=== PATIENT | male | born 1955 | race Caucasian/White ===

== ENCOUNTER 2021-02-26 12:34 | Inpatient (IN) | payer MEDICARE, BC ==
--- NOTE | 2021-02-26 12:57 | ED ---
General Adult HPI - General Chief complaint: Fall Stated complaint: fall Source: patient, EMS Mode of arrival: EMS Limitations: physical limitation - History of Present Illness Initial comments: Dictation was produced using [employer] dictation software. please excuse any gramma tical, word or spelling errors. Chief Complaint: 65-year-old male presents to the emergency department with back pain after fall History of Present Illness: This 65-year-old male who has past medical history of chronic back pain. Patient states he has a pinched nerve somewhere in his back. Patient was climbing down from the ladder. He was at the bottom rung when he missed his footing and fell backwards. He landed on his back. EMS was called patient was brought to the emergency department. EMS reports that patient had very noticeable back tightness. He was given Toradol with improvement of symptoms. Patient states that his pain is barelybelow he is still however when he moves he feels it. The ROS documented in this emergency department record has been reviewed and confirmed by me. Those systems with pertinent positive or negative responses have been documented in the HPI. All other systems are other negative and/or noncontributory. PHYSICAL EXAM: General Impression: Alert and oriented x3, not in acute distress HEENT: Normocephalic atraumatic, extra-ocular movements intact, pupils equal and reactive to light bilaterally, mucous membranes moist. Cardiovascular: Heart regular rate and rhythm Chest: Able to complete full sentences, no retractions, no tachypnea Abdomen: abdomen soft, non-tender, non-distended, no organomegaly Musculoskeletal: Pulses present and equal in all extremities, no peripheral edema Lower back: Tenderness to palpation over the entire lumbar spine Motor: no focal deficits noted Neurological: CN II-XII grossly intact, no focal motor or sensory deficits noted Skin: Intact with no visualized rashes Psych: Normal affect and mood ED course: 65-year-old male presents to the emergency department for back pain after fall. They'll from the bottom rung of the ladder backwards landing on his lower back. Denies any head trauma. No loss of consciousness. No headache or neck pain. Computed tomography scan of the lumbar spine and pelvis was obtained. There does appear to be some compression deformity at L1 with minimal retropulsion of the ventral spinal canal. This appears to be age indeterminate. There is also a possible 6 mm thick ventral epidural process. Radiology recommends stat MRI. Given history of trauma is concern of epidural hematoma. I did call MRI suite to see if patient can receive a stat MRI here. They will call me back as soon as possible to see if they have an opening or if findings to transfer patient for stat MRI to different facility. Patient reevaluated at 4 PM. States that his symptoms are much improved. Denies any numbness and weakness to his bilateral lower extremities. States the back pain is improved. MRI is scheduled for 4:30 PM. Return evaluation was ordered. Mild leukocytosis of 13.7 likely secondary to stress. Coag panel is negative. Metabolic panel is within acceptable limits. Medications were reviewed patient does not take any antiplatelet coagulation medications. She does not have any history of bleeding disorders. MRI was ordered. I did receive a call from radiologist regarding findings. There is acute subacute moderate L1 and L5 compression fracture. There also is mild to moderate anterior epidural hematoma at T12 to L2 as well as L5-S1. There is resulting mild central canal stenosis. There is also degenerative changes notable L3 to L5. Patient reevaluated bedside at 7:20 PM on a been stable medical condition. He denies any lower extremity symptoms at this time. No saddle anesthesia or bowel bladder incontinence. Case was discussed with spine surgeon Dr. Goodman kwok who is agreeable with patient being admitted here facility with every 2-3 hour neuro checks. Patient will remain nothing by mouth. Maintenance IV fluids ordered. - Related Data Home Medications Medication Instructions Recorded Confirmed Atorvastatin [Lipitor] 20 mg PO HS 02/26/21 02/26/21 Famotidine [Pepcid] 20 mg PO BID 02/26/21 02/26/21 Lisinopril [Prinivil] 10 mg PO HS 02/26/21 02/26/21 Allergies Allergy/AdvReac Type Severity Reaction Status Date / Time Sulfa (Sulfonamide Allergy Rash/Hives Verified 02/26/21 13:49 Antibiotics) Review of Systems ROS Statement: Those systems with pertinent positive or pertinent negative responses have been documented in the HPI. ROS Other: All systems not noted in ROS Statement are negative. Past Medical History Past Medical History: Hyperlipidemia, Hypertension Additional Past Medical History / Comment(s): arthritis History of Any Multi-Drug Resistant Organisms: None Reported Past Surgical History: Hernia Repair Additional Past Surgical History / Comment(s): cleft palat, cataract Past Psychological History: No Psychological Hx Reported Smoking Status: Never smoker Past Alcohol Use History: Daily General Exam Limitations: physical limitation Course Vital Signs 02/26/21 12:46 Temperature 98.5 F Pulse Rate 82 Respiratory 18 Rate Blood Pressure 133/97 O2 Sat by Pulse 96 Oximetry Medical Decision Making - Lab Data Result diagrams: 02/26/21 15:33 02/26/21 15:33 Lab Results 02/26/21 02/26/21 02/26/21 Range/Units 15:33 15:33 15:33 WBC 13.7 H (3.8-10.6) k/uL RBC 4.72 (4.30-5.90) m/uL Hgb 14.3 (13.0-17.5) gm/dL Hct 43.5 (39.0-53.0) % MCV 92.2 (80.0-100.0) fL MCH 30.3 (25.0-35.0) pg MCHC 32.8 (31.0-37.0) g/dL RDW 12.8 (11.5-15.5) % Plt Count 180 (150-450) k/uL MPV 8.0 Neutrophils % 88 % Lymphocytes % 7 % Monocytes % 4 % Eosinophils % 1 % Basophils % 0 % Neutrophils # 12.1 H (1.3-7.7) k/uL Lymphocytes # 0.9 L (1.0-4.8) k/uL Monocytes # 0.6 (0-1.0) k/uL Eosinophils # 0.1 (0-0.7) k/uL Basophils # 0.0 (0-0.2) k/uL PT 10.2 (9.0-12.0) sec INR 0.9 (<1.2) APTT 21.5 L (22.0-30.0) sec Sodium 138 (137-145) mmol/L Potassium 4.1 (3.5-5.1) mmol/L Chloride 108 H (98-107) mmol/L Carbon Dioxide 20 L (22-30) mmol/L Anion Gap 10 mmol/L BUN 17 (9-20) mg/dL Creatinine 0.78 (0.66-1.25) mg/dL Est GFR (CKD-EPI)AfAm >90 (>60 ml/min/1.73 sqM) Est GFR (CKD-EPI)NonAf >90 (>60 ml/min/1.73 sqM) Glucose 101 H (74-99) mg/dL Calcium 9.3 (8.4-10.2) mg/dL Critical Care Time Critical Care Time: Yes Total Critical Care Time: 33 Disposition Clinical Impression: Epidural hematoma, Compression fracture Disposition: ADMITTED IP TO THIS [facility] Condition: Critical Referrals: Nonstaff,Physician [REFERRING] - 1-2 days
--- NOTE | 2021-02-26 13:49 | CT ---
EXAMINATION TYPE: CT lumbar spine wo con DATE OF EXAM: 02/26/2021 COMPARISON: None HISTORY: 65-year-old male fall off of ladder, back pain TECHNIQUE: Contiguous axial scanning of the lumbar spine without IV contrast. Coronal and sagittal re constructions performed. CT DLP: 828.8 mGycm Automated exposure control for dose reduction was used. FINDINGS: Partially visualized cyst in the right kidney measuring at least 3.3 cm. Sigmoid diverticulosis. Mild degenerative change bilateral SI joints. Baastrup's disease. Hypertrophic facet arthropathy mid to lower lumbar spine. Grade 1 anterolisthesis L4-L5. Trace grade 1 retrolisthesis L1-L2. Mild anterior compression fracture of L1 is age indeterminate and needs further clinical correlation as no surrounding soft tissue swelling is clearly identified. Minimal retropulsion into the ventral s richmond canal without spinal canal stenosis. Possible ventral epidural process. Questionable soft tissue thickening near, for example, refer to sa gittal image 25 is indicated by the arrows. Corresponding finding seems to duplicate on the axial janice ges, for example, axial images 34, 43, 44, and 49. This may cause uniform narrowing of the thecal sac . IMPRESSION: 1. AGE INDETERMINATE MILD COMPRESSION DEFORMITY OF L1. CORRELATE FOR ANY FOCAL PAIN AT THIS LEVEL. PR NIMAL RETROPULSION INTO THE VENTRAL SPINAL CANAL WITHOUT SPINAL CANAL STENOSIS. 2. POSSIBLE 6 MM THICK VENTRAL EPIDURAL PROCESS EXTENDING FROM L2 DOWN THROUGH THE L4 LEVELS. LUMBAR SPINE MRI RECOMMENDED NOW. 3. HYPERTROPHIC FACET ARTHROPATHY WITH DEGENERATIVE GRADE 1 ANTEROLISTHESIS L4-L5.
--- NOTE | 2021-02-26 13:52 | CT ---
EXAMINATION TYPE: CT pelvis wo con DATE OF EXAM: 02/26/2021 COMPARISON: None HISTORY: 65-year-old male fall off of ladder, back pain TECHNIQUE: Contiguous axial scanning of the pelvis without IV contrast. Coronal and sagittal reconstr uctions performed. CT DLP: 330.4 mGycm Automated exposure control for dose reduction was used. FINDINGS: Osteopenia. Multiple moderate degenerative change in both hips. Prostate gland enlargement measuring 4.6 cm wide. Sclerotic focus left pubic body likely bone island. No hip or pelvic fracture is identified. Small fatty umbilical hernia. Sigmoid diverticulosis. Small to moderate-sized fat-containing left ing uinal hernia. IMPRESSION: OSTEOPENIA. MILD TO MODERATE BILATERAL HIP OA. NO ACUTE OSSEOUS ABNORMALITY SEEN.
--- NOTE | 2021-02-26 15:25 | XR ---
Skull series HISTORY: Trauma and pain 2 views of the skull, no comparisons There are postoperative changes noted to the maxilla. There is increased opacity noted in the left ma xillary sinus. Orbits are intact. No evident depressed skull fracture. No dislocation evident. Degene rative disc changes are noted in the cervical spine at C4-5, facet arthropathy changes are present in the cervical spine. Prevertebral soft tissues are within normal limits. Bone mineralization is reduc ed. IMPRESSION: Postop changes, opacity in the left maxillary sinus is indeterminate, there may be inflam matory change.
[2021-02-26 15:42] LABS: Basophils % (A) 0 %; Eosinophils # (A) 0.1 k/uL (0-0.7); Eosinophils % (A) 1 %; HCT 43.5 % (39.0-53.0); HGB 14.3 gm/dL (13.0-17.5); Lymphocytes # (A) 0.9 k/uL (1.0-4.8); Lymphocytes % (A) 7 %; MCH 30.3 pg (25.0-35.0); MCHC 32.8 g/dL (31.0-37.0); MCV 92.2 fL (80.0-100.0); Monocytes # (A) 0.6 k/uL (0-1.0); Monocytes % (A) 4 %; Neutrophils # (A) 12.1 k/uL (1.3-7.7); Neutrophils % (A) 88 %; Platelet Count 180 k/uL (150-450); RBC 4.72 m/uL (4.30-5.90); RDW 12.8 % (11.5-15.5); WBC 13.7 k/uL (3.8-10.6)
[2021-02-26 15:49] LABS: Sodium 138 mmol/L (137-145)
[2021-02-26 15:56] LABS: INR 0.9 (<1.2); Partial Thromboplastin Time 21.5 sec (22.0-30.0); Prothrombin Time 10.2 sec (9.0-12.0)
[2021-02-26 16:02] LABS: African American GFR (CKD) >90 (>60 ml/min/1.73 sqM); Anion Gap 10 mmol/L; Blood Urea Nitrogen 17 mg/dL (9-20); Calcium 9.3 mg/dL (8.4-10.2); Carbon Dioxide 20 mmol/L (22-30); Chloride 108 mmol/L (98-107); Glucose 101 mg/dL (74-99); Non-African American GFR(CKD) >90 (>60 ml/min/1.73 sqM); Potassium 4.1 mmol/L (3.5-5.1)
[2021-02-26] MEDS: MORPHINE SULFATE 4 MG/ML SYRINGE IVP PRN ×2 (18:32→23:52)
--- NOTE | 2021-02-26 19:01 | MR ---
EXAMINATION TYPE: MR lumbar spine wo con DATE OF EXAM: 02/26/2021 COMPARISON: Same-day CT. HISTORY: Low back pain, suspect epidural hematoma. TECHNIQUE: Multiplanar, multisequence images of the lumbar spine were acquired without IV contrast. FINDINGS: There is moderate L1 compression fracture with approximate the 30% height loss and without significan t retropulsion. There is also mild L5 compression fracture without significant height loss or retropu lsion. There is associated moderate bone marrow edema fracture sites. There is associated [id number] anterior epidural hematoma extending from T12 through L2. There is also trace anterior epidural hematoma at L5 level. There is mass effect with resultant mild centr al canal stenosis related to the epidural hematoma. There is mild paraspinal soft tissue edema at the fracture sites. There is multilevel mild disc bulge most notable at L3-L4. There is ligamentum flavum thickening with mild central canal stenosis at L3-L4 and L4-L5. There is also [id number] foraminal stenosis on the right at L3-5. Otherwise mild foraminal stenosis in the lower lumbar spine. There is incidental 1.1 cm cystic structure within the S2 central canal, compatible with benign Tarlo v cyst. IMPRESSION: Acute/subacute moderate L1 and mild L5 compression fractures. Associated mild to moderate anterior epidural hematoma at T12-L2 as well as L5-S1 levels. Resultant m ild central canal stenosis. Also mild to moderate degenerative changes most notable at L3-L5 with mild central canal and mild to moderate foramina stenosis. Findings were reported to caring ED physician by me at time of dictation.
[2021-02-26] MEDS ORDERED: MORPHINE SULFATE 4 MG/ML SYRINGE IV PRN (19:19)
[2021-02-26] MEDS ORDERED: NALOXONE 0.4 MG/ML 1 ML VIAL IV PRN (19:19)
[2021-02-26] MEDS: SODIUM CHLORIDE 0.9% 1,000 ML IV SCH (20:54)
--- NOTE | 2021-02-26 20:56 | CT ---
EXAMINATION TYPE: CT thoracic spine wo con DATE OF EXAM: 02/26/2021 COMPARISON: Same-day CT and MR lumbar spine. HISTORY: back pain, fell off ladder Technique: Axial CT images of the lumbar spine was performed without contrast. CT DLP: 722.6 mGycm Automated exposure control for dose reduction was used. FINDINGS: There is redemonstration of moderate L1 compression fracture. Otherwise no acute fracture of the thor acic spine. Vertebral body heights are otherwise maintained. There is mild disc height narrowing at T 8-T12. The known anterior epidural hematoma at the thoracolumbar junction is better depicted on the p rior MRI study. There is an incidental 3.2 cm right renal cyst. IMPRESSION: REDEMONSTRATED ACUTE L1 COMPRESSION FRACTURE WITH KNOWN EPIDURAL HEMATOMA. OTHERWISE NO ACUTE FRACTURE OF THE THORACIC SPINE.
[2021-02-26] MEDS: FAMOTIDINE 20 MG TAB PO SCH (23:44)
[2021-02-26] MEDS: ATORVASTATIN 20 MG TAB PO SCH (23:44)
[2021-02-26] MEDS: lisinopriL 10 MG TAB PO SCH (23:45)
--- NOTE | 2021-02-27 00:24 | P.CONS ---
History of Present Illness - Reason for Consult Consult date: 02/26/21 medical eval Requesting physician: Toni Campbell - Chief Complaint back pain - History of Present Illness 65 year old male with hypertension patient comes in by EMS, after sustaining a fall off a ladder he was on his way down when he missed the last step and fell backward, no head injury or LOC , but exacerbated his chronic low back pain , from pinched nerve, his called EMS for evaluation . patient received a one time toradol dose en route. upon arrival he was complaining of severe low back pain , without any focal neuro deficits in his lower extremities , he denies any saddle parasthesia, urinary or bowel incontinence. he is not on any blood thinners, no antiplatelets, no bleeding tendencies. he is otherwise in good health overall. imaging showed, acute, subacute, moderate L1 and L5 compression fracture, there is also mild to moderate anterior epidural hematoma at T12-L2, as well as L5 to S1. there is resulting mild central canal stenosis . also degenerative changes noted over L3-L5 per Spine surgeon , recommended patient kept overnight for neuro checks Q2 hours and pain control Review of Systems Pertinent positives as noted in HPI. All other systems were reviewed and are negative Past Medical History Past Medical History: Hyperlipidemia, Hypertension Additional Past Medical History / Comment(s): arthritis History of Any Multi-Drug Resistant Organisms: None Reported Past Surgical History: Hernia Repair Additional Past Surgical History / Comment(s): cleft palat, cataract Past Psychological History: No Psychological Hx Reported Smoking Status: Never smoker Past Alcohol Use History: Daily - Past Family History family Family Medical History: No Reported History Medications and Allergies Home Medications Medication Instructions Recorded Confirmed Type Atorvastatin [Lipitor] 20 mg PO HS 02/26/21 02/26/21 History Famotidine [Pepcid] 20 mg PO BID 02/26/21 02/26/21 History Lisinopril [Prinivil] 10 mg PO HS 02/26/21 02/26/21 History Allergies Allergy/AdvReac Type Severity Reaction Status Date / Time Sulfa (Sulfonamide Allergy Rash/Hives Verified 02/26/21 13:49 Antibiotics) Physical Exam Vitals: Vital Signs Temp Pulse Resp BP Pulse Ox 02/26/21 12:46 98.5 F 82 18 133/97 96 Intake and Output 02/26/21 02/26/21 02/26/21 06:59 14:59 22:59 Other: Weight 78.018 kg Constitutional: No acute distress, conversant, pleasant Eyes: Anicteric sclerae, moist conjunctiva, Pupils equal round reactive to light ENMT: NC/AT Oropharynx clear, no erythema, or exudates Neck: Supple, FROM, no masses, or JVD No carotid bruits No thyromegaly Lungs: Clear to auscultation Clear to percussion Normal respiratory effort, no accessory muscle use Cardiovascular: Heart regular in rate and rhythm, No murmurs, gallops, or rubs No peripheral edema Abdominal: Soft Nontender, no guarding, rebound or rigidity Abdomen moving with respiration Normoactive bowel sounds No hepatomegaly, No splenomegaly No palpable mass No abdominal wall hernia noted Skin: Normal temperature, tone, texture, turgor No induration No subcutaneous nodules No rash, lesions No ulcers Extremities: No digital cyanosis No clubbing Pedal pulses intact and symmetrical Radial pulses intact and symmetrical No calf tenderness Psychiatric: Alert and oriented to person, place and time Appropriate affect fair judgement Neuro Muscles Strength 4 /5 in all 4 extremities Sensation to light touch grossly present throughout Cranial nerves II-XII grossly intact No focal sensory deficits Lymphatics: no palpable cervical or supraclavicular , or inguinal lymph nodes Results CBC & Chem 7: 02/26/21 15:33 02/26/21 15:33 Labs: Abnormal Lab Results - Last 24 Hours (Table) 02/26/21 02/26/21 02/26/21 Range/Units 15:33 15:33 15:33 WBC 13.7 H (3.8-10.6) k/uL Neutrophils # 12.1 H (1.3-7.7) k/uL Lymphocytes # 0.9 L (1.0-4.8) k/uL APTT 21.5 L (22.0-30.0) sec Chloride 108 H (98-107) mmol/L Carbon Dioxide 20 L (22-30) mmol/L Glucose 101 H (74-99) mg/dL Assessment and Plan Assessment: compression fracture of L1 and L5 , with mild to moderate anterior epidural hematoma at T12-L2, and L5-S1 spine surgery management pain control with morphine avoid blood thinners, and antiplatelet meds, avoid NSAIDs neuro checks [id number] NPO IVF hydration with normal saline chronic conditions hyperlipidemia Hypertension resume homemeds GERD Pepcid BID full code follow up vital signs Thank you for allowing us to participate in the care of this patient. We will follow peripherally. Do not hesitate to contact us with questions. Someone can be reached from the [facility] hospitalist group at all hours of the day at [phone].
[2021-02-27] MEDS: MORPHINE SULFATE 4 MG/ML SYRINGE IVP PRN (07:21)
[2021-02-27] MEDS: FAMOTIDINE 20 MG TAB PO SCH ×2 (08:08→20:10)
--- NOTE | 2021-02-27 08:58 | P.HPOR ---
History of Present Illness H&P Date: 02/27/21 Chief Complaint: back pain, fall off ladder 65 yo male presented to [facility] after a fall off of a ladder. Pt states he was coming down the ladder when he missed the last two steps and fell backwards directly onto his back and buttock region. He states no BHT or LOC with the fa ll. Immediate back pain from the fall prompted his ED visit. He has a hx of chronic back pain as well as a "pinched nerve" for which his PCP was treating him and he was in therapy with Negrita jones. He was doing well with this and was improving. Today he states pain in his back. He denies any radiating pain. Denies any pain down the legs. States no weakness. States he got up after the fall and was able to ambulate but with alot of pain. He denies any perineal numbness/tingling. No genital numbness/tingling. No bowel or bladder issues. no incontinence or retention he has voided once already today. Denies any CRUZ/F/C/SOB/CP/N/V. Pain is localized to center of the back and is mid to upper and lower at this time. Review of Systems 14 point ROS completed and as stated in HPI. All other reviewed negative. Constitutional: Reports as per HPI Past Medical History Past Medical History: Hyperlipidemia, Hypertension Additional Past Medical History / Comment(s): arthritis History of Any Multi-Drug Resistant Organisms: None Reported Past Surgical History: Hernia Repair Additional Past Surgical History / Comment(s): cleft palat, cataract Past Psychological History: No Psychological Hx Reported Smoking Status: Never smoker Past Alcohol Use History: Daily - Past Family History family Family Medical History: No Reported History Medications and Allergies Home Medications Medication Instructions Recorded Confirmed Type Atorvastatin [Lipitor] 20 mg PO HS 02/26/21 02/26/21 History Famotidine [Pepcid] 20 mg PO BID 02/26/21 02/26/21 History Lisinopril [Prinivil] 10 mg PO HS 02/26/21 02/26/21 History Allergies Allergy/AdvReac Type Severity Reaction Status Date / Time Sulfa (Sulfonamide Allergy Rash/Hives Verified 02/26/21 13:49 Antibiotics) Physical Examination Osteopathic Statement: *. No significant issues noted on an osteopathic structural exam other than those noted in the History and Physical/Consult. AOX3 NAD, well hydrated, well nourished, sitting up in bed converses well. PEERL, EOMI CN I-XII grossly intact TTP of the midline spine at T12 and L1 as well as L4-5 region. Some paraspinal ttp as well noted in these areas. No midline spinal tenderness (MST) of the C or T spine noted. NO clavicular pain, no pain with chin on chest or neck motion. Overall alignment maintained UE: 5/5 b/l motor in all major muscle groups, no focal deficits or weakness noted. LE: 5/5 strength in all. HF/KF/KE/DF/PF/EHL/FHL b/l SILT C5-T1 and L2-S1 intact perirectal sensation and tone NEG hoffmans, homans, babinski, clonus b/l UE and LE Mild tensioning signs on SLR and contralateral SLR on the L due to previous issues with sciatica and radiculopathy, no overt accentuation according to pt 2/4 distal pulses all FROM all major joints UE and LE b/l w/o pain Compartments soft and compressive Diadiokinesis intact b/l Rombergs intact b/l No pronator drift No wallenburgs sign Results CT of the T and L spine: This demonstrates ankylosis of the anterior thoracic spine. There is visualized L1 burst fracture. There are no other fractures noted in thoracic spine. In lumbar spine L1 AOA3 type burst fracture is noted with anterior wedging and 30% height loss with local kyphosis noted. There is questionable extension into the L pedicle. There is no evident posterior extension. There is epidural hematoma noted in this area. No SP splaying. No facet dislocation. No other fractures noted. MRI of the L spine: This demonstrates acute L1 AOA3 burst fracture as well as L5 VCF, mild. L1 is as described above with mild L pedicular edema, questionable fracture. There is L5 edema noted with <10% height loss. There is epidural hematoma noted T12-L2 as well as L5-S2. This causes mild to moderate stenosis at these levels. There is no acute stenotic lesions. There are no other fractures dislocations or other lesions noted at this time. - Labs Labs: Abnormal Lab Results - Last 24 Hours (Table) 02/26/21 02/26/21 02/26/21 Range/Units 15:33 15:33 15:33 WBC 13.7 H (3.8-10.6) k/uL Neutrophils # 12.1 H (1.3-7.7) k/uL Lymphocytes # 0.9 L (1.0-4.8) k/uL APTT 21.5 L (22.0-30.0) sec Chloride 108 H (98-107) mmol/L Carbon Dioxide 20 L (22-30) mmol/L Glucose 101 H (74-99) mg/dL H & H 02/26/21 Range/Units 15:33 Hgb 14.3 (13.0-17.5) gm/dL Hct 43.5 (39.0-53.0) % Coagulation 02/26/21 Range/Units 15:33 INR 0.9 (<1.2) Result Diagrams: 02/26/21 15:33 02/26/21 15:33 Assessment and Plan Assessment: 65 yo male s/p fall off ladder 1. L1 AOA3 burst fracture 2. L5 AOA2 compression fx 3. Epidural hematoma T12-L2 and L5-S2 4. Chronic back pain 5. Complex medical patient. Plan: -TLSO brace ordered and to be fitted -Pain control: PO meds along with IV. Light on IV only for breakthrough. Wendel for PO -GI ppx -No blood thinners, no NSAIDS -PT/OT once brace available to evaluate pain control and bracing potential for treatment -Continue to monitor neuro status Q4 hrs -Discussed treatment plan with patient. If he is able to mobilize with a brace reasonably and with good pain control and strength he may be able to go home and we can trial conservative treatment. If he is unable to tolerate mobilization with brace we may need to consider stabilization of L1 with rods and screws as well as possible cement. He understood this and was comfortable with this. We will attempt bracing here with PT/OT and see how pt does. We will continue neuro checks. No blood thinners at this time. [facility] DVT ppx only. Pain control as needed. Will follow closely
--- NOTE | 2021-02-27 09:16 | P.PN ---
Subjective Progress Note Date: 02/27/21 HPI: 65 year old male with hypertension patient comes in by EMS, after sustaining a fall off a ladder he was on his way down when he missed the last step and fell backward, no head injury or LOC , but exacerbated his chronic low back pain , from pinched nerve, his called EMS for evaluation . patient received a one time toradol dose en route. upon arrival he was complaining of severe low back pain , without any focal neuro deficits in his lower extremities , he denies any saddle parasthesia, urinary or bowel incontinence. he is not on any blood thinners, no antiplatelets, no bleeding tendencies. he is otherwise in good health overall. imaging showed, acute, subacute, moderate L1 and L5 compression fracture, there is also mild to moderate anterior epidural hematoma at T12-L2, as well as L5 to S1. there is resulting mild central canal stenosis . also degenerative changes noted over L3-L5 per Spine surgeon , recommended patient kept overnight for neuro checks Q2 hours and pain control Feels ok , no cp no abd pain , no n/v or dizziness Objective - Vital Signs Vital signs: Vital Signs Temp 98.4 F 02/27/21 08:10 Pulse 83 02/27/21 08:10 Resp 16 02/27/21 08:10 BP 128/83 02/27/21 08:10 Pulse Ox 93 L 02/27/21 08:10 Intake & Output 02/26/21 02/27/21 02/27/21 18:59 06:59 18:59 Intake Total 450 Output Total 400 Balance 50 Weight 78.018 kg 82 kg Intake: Intake, IV Titration 400 Amount Sodium Chloride 0.9% 1, 400 000 ml @ 110 mls/hr IV . Q9H6M [facility] Rx#:[id number] Oral 50 Output: Urine 400 Other: Voiding Method Urinal # Voids 2 - Exam Constitutional: No acute distress, conversant, pleasant Eyes: Anicteric sclerae Pupils equal round reactive to light ENMT: NC/AT Neck: Supple, FROM, no masses, or JVD Lungs: Clear to auscultation Clear to percussion Normal respiratory effort, no accessory muscle use Cardiovascular: Heart regular in rate and rhythm, No murmurs, gallops, or rubs No peripheral edema Abdominal: Soft Nontender, no guarding, rebound or rigidity Abdomen moving with respiration Normoactive bowel sounds No hepatomegaly, No splenomegaly No palpable mass No abdominal wall hernia noted Skin: Normal temperature, tone, texture, turgor No induration No subcutaneous nodules No rash, lesions No ulcers Extremities: No digital cyanosis No clubbing Pedal pulses intact and symmetrical Radial pulses intact and symmetrical No calf tenderness Psychiatric: Alert and oriented to person, place and time Appropriate affect fair judgement Neuro Muscles Strength 4 /5 in all 4 extremities Sensation to light touch grossly present throughout Cranial nerves II-XII grossly intact No focal sensory deficits - Labs CBC & Chem 7: 02/26/21 15:33 02/26/21 15:33 Labs: Abnormal Lab Results - Last 24 Hours (Table) 02/26/21 02/26/21 02/26/21 Range/Units 15:33 15:33 15:33 WBC 13.7 H (3.8-10.6) k/uL Neutrophils # 12.1 H (1.3-7.7) k/uL Lymphocytes # 0.9 L (1.0-4.8) k/uL APTT 21.5 L (22.0-30.0) sec Chloride 108 H (98-107) mmol/L Carbon Dioxide 20 L (22-30) mmol/L Glucose 101 H (74-99) mg/dL Assessment and Plan Plan: 1. compression fracture of L1 and L5 , with mild to moderate anterior epidural hematoma at T12-L2, and L5-S1 spine surgery management , conservative treatment for now pain control with morphine avoid blood thinners, and antiplatelet meds, avoid NSAIDs neuro checks IVF with normal saline decrease to 50 ml/hr 2. leukocytosis: likely reactive ,, wbc 13.7 , monitor chronic conditions hyperlipidemia : on statin Hypertension: on lisinopril GERD Pepcid BID Thank you for allowing us to participate in the care of this patient. We will follow. Treatment plan discussed with Dr. Mott and RN
--- NOTE | 2021-02-27 10:50 | MR ---
EXAMINATION TYPE: MR thoracic spine wo con DATE OF EXAM: 02/27/2021 COMPARISON: CT thoracic spine from yesterday. MRI lumbar spine from yesterday. HISTORY: Back pain after recent fall off ladder injury. Suspected thoracic spine fractures. Possible paraspinal hematoma. TECHNIQUE: Multiplanar, multisequence imaging of thoracic spine is performed without contrast FINDINGS: A Vitamin E marker is placed posteriorly for counting purposes and is at level of the super ior T10 vertebra. Spinal cord shows normal caliber and signal as it courses the thoracic spine. Ther e is S-shaped scoliosis on coronal images which is dextroconvex in curvature in the upper to mid thor acic spine and levoconvex in curvature in the lower thoracic spine. Vertebral body heights and disc s pace heights are maintained. Some bridging osteophytes in the lower thoracic spine are seen better on CT versus MRI. Occasional small scattered hemangiomas present for reference T7 vertebral sagittal im age 7. No suspicious osseous edema to suggest fracture. Exaggerated thoracic kyphosis redemonstrated. Review of the axial images shows no large disc herniation or significant spinal canal stenosis or traci ral foraminal narrowing at any thoracic level. Tiny bilateral pleural effusions slightly larger versu s prior CT study. Paraspinal muscle bulk fairly well-preserved. Suspected acute fracture at L1 level is only partially imaged, horizontal diminished T1 signal sagitt al image 5 noted extends to superior endplate. Anterior epidural hematoma begins superior T12 level e xtending inferiorly correlates with MRI study from one day earlier. IMPRESSION: No additional acute fracture in the thoracic spine. No additional suspicious paraspinal fluid collection or hematoma noted.
[2021-02-27] MEDS: ACETAMINOPHEN TAB 325 MG TAB PO PRN ×2 (11:25→17:30)
[2021-02-27] MEDS: SODIUM CHLORIDE 0.9% 1,000 ML IV SCH ×2 (11:27)
[2021-02-27] MEDS: MORPHINE SULFATE 4 MG/ML SYRINGE IV PRN ×2 (14:12→21:09)
[2021-02-27] MEDS ORDERED: ONDANSETRON 4 MG/2 ML VIAL IVP PRN (16:20)
[2021-02-27] MEDS: ATORVASTATIN 20 MG TAB PO SCH (20:10)
[2021-02-27] MEDS: lisinopriL 10 MG TAB PO SCH (20:11)
[2021-02-28] MEDS: ACETAMINOPHEN TAB 325 MG TAB PO PRN ×3 (04:58→19:56)
[2021-02-28 07:20] LABS: Basophils % (A) 0 %; Eosinophils # (A) 0.1 k/uL (0-0.7); Eosinophils % (A) 2 %; HCT 37.2 % (39.0-53.0); Lymphocytes # (A) 0.8 k/uL (1.0-4.8); Lymphocytes % (A) 9 %; MCH 30.3 pg (25.0-35.0); MCHC 32.2 g/dL (31.0-37.0); MCV 94.1 fL (80.0-100.0); Mean Platelet Volume 8.2; Monocytes # (A) 0.5 k/uL (0-1.0); Monocytes % (A) 6 %; Neutrophils # (A) 6.9 k/uL (1.3-7.7); Neutrophils % (A) 82 %; Platelet Count 146 k/uL (150-450); RBC 3.96 m/uL (4.30-5.90); RDW 12.9 % (11.5-15.5); WBC 8.4 k/uL (3.8-10.6)
[2021-02-28 07:39] LABS: ALT 19 U/L (4-49); AST 24 U/L (17-59); African American GFR (CKD) >90 (>60 ml/min/1.73 sqM); Albumin 3.2 g/dL (3.5-5.0); Alkaline Phosphatase 83 U/L (38-126); Anion Gap 4 mmol/L; Blood Urea Nitrogen 14 mg/dL (9-20); Calcium 8.5 mg/dL (8.4-10.2); Carbon Dioxide 25 mmol/L (22-30); Chloride 108 mmol/L (98-107); Glucose 107 mg/dL (74-99); Non-African American GFR(CKD) >90 (>60 ml/min/1.73 sqM); Potassium 4.1 mmol/L (3.5-5.1); Sodium 137 mmol/L (137-145); Total Bilirubin 0.9 mg/dL (0.2-1.3)
[2021-02-28] MEDS: FAMOTIDINE 20 MG TAB PO SCH ×2 (08:22→20:59)
--- NOTE | 2021-02-28 09:18 | P.PN ---
Subjective Progress Note Date: 02/28/21 Principal diagnosis: L1 AOA3 burst fracture, L5 AOA2 compression fx, Epidural hematoma T12-L2 and L5-S2 Patient was evaluated at bedside today, he is resting comfortably. Patient is utilizing a TLSO brace. He has not been up with therapy at today. They did attempt to get him up yesterday, he did have some nausea and diaphoresis, along with slight increase in pain. He has not had an episode of that since then. He is urinating with no difficulties, he is passing gas. He denies any numbness or tingling in the bilateral upper or lower extremities. He denies any numbness or tingling in the genital or perineal region. He denies any loss of bowel or bladder function. Objective - Vital Signs Vital signs: Vital Signs Temp 97.6 F 02/28/21 08:20 Pulse 86 02/28/21 08:20 Resp 18 02/28/21 08:20 BP 150/93 02/28/21 08:20 Pulse Ox 93 L 02/28/21 08:20 Intake & Output 02/27/21 02/28/21 02/28/21 18:59 06:59 18:59 Intake Total 650 Output Total 300 Balance 650 -300 Weight 82 kg Intake: Intake, IV Titration 350 Amount Sodium Chloride 0.9% 1, 300 000 ml @ 110 mls/hr IV . Q9H6M [facility] Rx#:[id number] Sodium Chloride 0.9% 1, 50 000 ml @ 50 mls/hr IV . Q20H [facility] Rx#:[id number] Oral 300 Output: Urine 300 Other: Voiding Method Urinal # Voids 0 # Bowel Movements 1 - Exam Gen: AOx3, NAD VSS stable at this time Integument: No obvious skin changes are noted throughout the cervical, thoracic and lumbar spine Palpation: Patient is nontender palpation of midline and paraspinal region of the cervical or thoracic spine. There is tenderness with palpation in the midline and paraspinal region of the lumbar spine ROM: Full range of motion in all major muscle groups of bilateral lower extremities Sensory Exam: Senory exam to light touch is intact C5-T1 Senosry exam to light touch is intact L2-S1 Motor: 5/5 strength is appreciated in the bilateral upper extremities with shoulder abduction, forward elevation, elbow extension, elbow flexion, wrist extension, wrist flexion, jr. java developer strength 5 out of 5 strength is appreciated in the bilateral lower extremities with hip flexion, knee flexion, knee extension, plantar flexion, dorsiflexion, EHL, FHL Reflexes: 2/4 in all UE and LE Negative Katiana's, clonus, Babinski bilaterally - Labs CBC & Chem 7: 02/28/21 06:37 02/28/21 06:37 Labs: Abnormal Lab Results - Last 24 Hours (Table) 02/28/21 02/28/21 Range/Units 06:37 06:37 RBC 3.96 L (4.30-5.90) m/uL Hgb 12.0 L (13.0-17.5) gm/dL Hct 37.2 L (39.0-53.0) % Plt Count 146 L (150-450) k/uL Lymphocytes # 0.8 L (1.0-4.8) k/uL Chloride 108 H (98-107) mmol/L Glucose 107 H (74-99) mg/dL Total Protein 6.0 L (6.3-8.2) g/dL Albumin 3.2 L (3.5-5.0) g/dL Assessment and Plan Assessment: 1. L1 AOA3 burst fracture 2. L5 AOA2 compression fx 3. Epidural hematoma T12-L2 and L5-S2 4. Chronic back pain 5. Complex medical patient. Plan: Patient seems to be stable at this time with use of the TLSO brace. Would like to see how patient does with physical therapy today when it comes ambulating. Recommend use of a walker at all times. Patient did discuss with nursing staff about wanting to go home today, I advise to nursing that we would likely wait one additional day if he does make progression with physical therapy. Discussed again with the patient possibility of surgical intervention if symptoms don't improve We'll reassess later this afternoon after patient works with physical therapy Other medical specialty recommendations GI and DVT prophylaxis per primary medical service Time with Patient: Less than 30
--- NOTE | 2021-02-28 12:27 | P.PN ---
Subjective Progress Note Date: 02/28/21 No new complaints today. Pt reports no pain while laying in bed. Pending PT eval at the time of my interview. Objective - Vital Signs Vital signs: Vital Signs Temp 97.6 F 02/28/21 08:20 Pulse 86 02/28/21 08:20 Resp 18 02/28/21 08:20 BP 150/93 02/28/21 08:20 Pulse Ox 93 L 02/28/21 08:20 Intake & Output 02/27/21 02/28/21 02/28/21 18:59 06:59 18:59 Intake Total 650 180 Output Total 300 Balance 650 -300 180 Weight 82 kg Intake: Intake, IV Titration 350 Amount Sodium Chloride 0.9% 1, 300 000 ml @ 110 mls/hr IV . Q9H6M [facility] Rx#:[id number] Sodium Chloride 0.9% 1, 50 000 ml @ 50 mls/hr IV . Q20H [facility] Rx#:[id number] Oral 300 180 Output: Urine 300 Other: Voiding Method Urinal Urinal # Voids 0 # Bowel Movements 1 - Exam Gen: awake, alert HEENT: normocephalic, atraumatic, good hearing acuity, moist mucous membranes Resp: good air exchange, breathing comfortably with no accessory muscle use CVS: good distal perfusion x 4, GI: soft, NTTP, ND : no SPT, no CVAT, valles catheter not present MSK: no pitting edema, no clubbing Neuro: non-focal, moving all extremities Psych: cooperative, euthymic mood - Labs CBC & Chem 7: 02/28/21 06:37 02/28/21 06:37 Labs: Abnormal Lab Results - Last 24 Hours (Table) 02/28/21 02/28/21 Range/Units 06:37 06:37 RBC 3.96 L (4.30-5.90) m/uL Hgb 12.0 L (13.0-17.5) gm/dL Hct 37.2 L (39.0-53.0) % Plt Count 146 L (150-450) k/uL Lymphocytes # 0.8 L (1.0-4.8) k/uL Chloride 108 H (98-107) mmol/L Glucose 107 H (74-99) mg/dL Total Protein 6.0 L (6.3-8.2) g/dL Albumin 3.2 L (3.5-5.0) g/dL Assessment and Plan Assessment: Compression fracture of L1 and L5 , with mild to moderate anterior epidural hematoma at T12-L2, and L5-S1 -spine surgery management , conservative treatment for now -pain control with morphine -avoid blood thinners, and antiplatelet meds, avoid NSAIDs -neuro checks -IVF with normal saline decrease to 50 ml/hr Leukocytosis -likely reactive ,, wbc 13.7 , monitor Hyperlipidemia : on statin Hypertension: on lisinopril GERD Pepcid BID
[2021-02-28] MEDS: SODIUM CHLORIDE 0.9% 1,000 ML IV SCH (14:01)
--- NOTE | 2021-02-28 15:45 | XR ---
Thoracic spine and lumbar spine HISTORY: Back pain trauma trauma several days prior 3 views of lumbar spine, 3 views of the thoracic spine, correlation to CT thoracic spine 02/26/2021, l umbar spine MRI 02/26/2021, thoracic spine MRI 02/27/2021 There is overlying artifact present. Bone mineralization is reduced. Anterior compression deformities noted at L1, loss of height of approximately 50% anteriorly. No significant retropulsion is evident. Multilevel spondylosis is present in the thoracic and lumbar spine. There is a spinal curvature whic h is S-shaped in the thoracic spine. Aorta is dense. Subsegmental basilar atelectatic changes are not ed incidentally at the lung bases. IMPRESSION: Compression deformity may have progressed at L1
[2021-02-28] MEDS: lisinopriL 10 MG TAB PO SCH (20:58)
[2021-02-28] MEDS: ATORVASTATIN 20 MG TAB PO SCH (20:59)
[2021-03-01] MEDS: ACETAMINOPHEN TAB 325 MG TAB PO PRN (05:02)
[2021-03-01] MEDS: SODIUM CHLORIDE 0.9% 1,000 ML IV SCH (05:04)
[2021-03-01 07:49] VITALS: RESP 16; TEMP 98
--- NOTE | 2021-03-01 08:14 | P.PN ---
Progress Note - Text Progress Note Date: 03/01/21 Upright x-rays are reviewed. Fracture and height loss noted at L1. Overall alignment is fairly well maintained there is no evidence of instability or shifting. As long as the patient is able to tolerate the brace we will continue with this. We will follow-up with him in one week for evaluation if he is still having a lot of pain or unable to perform daily living's with the brace we will discuss surgical fixation he agreed with this and was comfortable this plan.
[2021-03-01] MEDS: FAMOTIDINE 20 MG TAB PO SCH (08:30)
[2021-03-01 10:09] VITALS: BP 158/93; PULSE 91
--- NOTE | 2021-03-01 10:32 | P.PN ---
Subjective Progress Note Date: 03/01/21 Principal diagnosis: L1 AOA3 burst fracture, L5 AOA2 compression fx, Epidural hematoma T12-L2 and L5-S2 Patient was evaluated at bedside today, he is resting comfortably. Patient is utilizing a TLSO brace. Patient has progressed well with therapy. He is urinating with no difficulties, he is passing gas. He denies any numbness or tingling in the bilateral upper or lower extremities. He denies any numbness or tingling in the genital or perineal region. He denies any loss of bowel or bladder function. Objective - Vital Signs Vital signs: Vital Signs Temp 98 F 03/01/21 10:08 Pulse 91 03/01/21 10:08 Resp 16 03/01/21 10:08 BP 158/93 03/01/21 10:08 Pulse Ox 94 L 03/01/21 10:08 Intake & Output 02/28/21 03/01/21 03/01/21 18:59 06:59 18:59 Intake Total 840 480 Balance 840 480 Weight 80.2 kg Intake: Oral 840 480 Other: Voiding Method Urinal Toilet Toilet # Voids 2 1 - Exam Gen: AOx3, NAD VSS stable at this time Integument: No obvious skin changes are noted throughout the cervical, thoracic and lumbar spine Palpation: Patient is nontender palpation of midline and paraspinal region of the cervical or thoracic spine. There is tenderness with palpation in the midline and paraspinal region of the lumbar spine ROM: Full range of motion in all major muscle groups of bilateral lower extremities Sensory Exam: Senory exam to light touch is intact C5-T1 Senosry exam to light touch is intact L2-S1 Motor: 5/5 strength is appreciated in the bilateral upper extremities with shoulder abduction, forward elevation, elbow extension, elbow flexion, wrist extension, wrist flexion, forge shop supervisor strength 5 out of 5 strength is appreciated in the bilateral lower extremities with hip flexion, knee flexion, knee extension, plantar flexion, dorsiflexion, EHL, FHL Reflexes: 2/4 in all UE and LE Negative Katiana's, clonus, Babinski bilaterally - Labs CBC & Chem 7: 02/28/21 06:37 02/28/21 06:37 Assessment and Plan Assessment: 1. L1 AOA3 burst fracture 2. L5 AOA2 compression fx 3. Epidural hematoma T12-L2 and L5-S2 4. Chronic back pain 5. Complex medical patient. Plan: Patient remained stable with use of the TLSO brace along with his ambulatory status. Patient has been utilizing a walker Other medical specialty recommendations GI and DVT prophylaxis per primary medical service Discharge planning: Patient stable via orthopedics standpoint for discharge to home. He will follow up with Dr. Campbell in 1 week for clinical and x-ray evaluation Time with Patient: Less than 30
--- NOTE | 2021-03-01 10:42 | P.DS ---
Providers Date of admission: 02/26/21 19:19 Expected date of discharge: 03/01/21 Attending physician: Toni Campbell DO Consults: 02/26/21 19:20 Consult Physician Routine Consulting Provider: Corin Canales Consult Reason/Comments: medicine consult Do you want consulting provider notified?: Yes Primary care physician: Marcello Valadez [facility] Course: Date of admission: 02/26/2021 Date of discharge: 03/01/2021 Admission diagnosis: L1 AOA3 burst fracture, L5 AOA2 compression fx, Epidural hematoma T12-L2 and L5-S2 Discharge diagnosis: Same Attending physician: Dr. Campbell Surgical procedures: None Brief history: Patient is a 65-year old male was evaluated [facility] on 02/26/2021 after falling from a ladder at his home. Patient was bro ught to the emergency room for further evaluation. Imaging test demonstrated compression fractures involving the L1 and L5 vertebrae along with epidural hematoma from T12-L2, L5-S2. The emergency room staff to contact Dr. Campbell regarding this, the patient was demonstrated no acute neurological symptoms. He was admitted under our care for observation. Hospital course: Patient's orthopeidc and medical care was provided daily. Patient had daily laboratory tests performed for evaluation of overall blood counts. Patient had daily physical therapy to include strengthening range of motion as well as education with walker ambulation. Patient was prescribed a TLSO brace to utilize ambulatory, he utilized a walker at all times. Patient progressed well with conservative management. Discharge condition/disposition: Patient will be discharged home in stable condition. Discharge medications: Instructions are given on resumption of patient's normal daily medications per primary care recommendation Discharge instructions: 1. Utilize TLSO brace at all times when ambulatory 2. Utilize walker at all times 3. No lifting, bending, or twisting at this time 4. Tasc-fks-agtwyrk Tylenol as needed for pain 5. Plan for follow-up with Dr. Campbell 1 week for clinical and x-ray evaluation 6. Please contact office for any questions or changes in symptoms, Patient Condition at Discharge: Good Plan - Discharge Summary Discharge Rx Participant: No New Discharge Prescriptions: No Action Lisinopril [Prinivil] 10 mg PO HS Atorvastatin [Lipitor] 20 mg PO HS Famotidine [Pepcid] 20 mg PO BID Discharge Medication List Atorvastatin [Lipitor] 20 mg PO HS 02/26/21 [History] Famotidine [Pepcid] 20 mg PO BID 02/26/21 [History] Lisinopril [Prinivil] 10 mg PO HS 02/26/21 [History] Follow up Appointment(s)/Referral(s): Nonstaff,Physician [REFERRING] - 1-2 days Toni Campbell DO [Doctor of Osteopathic Medicine] - 03/08/21 Activity/Diet/Wound Care/Special Instructions: Orthopedic discharge instructions: 1. Utilize vokv-llo-sedvvir Tylenol or Motrin as needed 2. Utilize TLSO brace when ambulatory 3. Utilize walker at all times with ambulation 4. Plan for follow-up with Dr. Campbell in office in 1 week for recheck 5. Please contact our office of any questions, Discharge Disposition: HOME SELF-CARE
--- NOTE | 2021-03-01 12:32 | P.PN ---
Subjective Progress Note Date: 03/01/21 No new complaints today. Doing well with no pain. TLSO brace is working well per patient. Ambulating well with walker. Objective - Vital Signs Vital signs: Vital Signs Temp 98 F 03/01/21 10:08 Pulse 91 03/01/21 10:08 Resp 16 03/01/21 10:08 BP 158/93 03/01/21 10:08 Pulse Ox 94 L 03/01/21 10:08 Intake & Output 02/28/21 03/01/21 03/01/21 18:59 06:59 18:59 Intake Total 840 480 Balance 840 480 Weight 80.2 kg Intake: Oral 840 480 Other: Voiding Method Urinal Toilet Toilet # Voids 2 1 - Exam Gen: awake, alert HEENT: normocephalic, atraumatic, good hearing acuity, moist mucous membranes Resp: good air exchange, breathing comfortably with no accessory muscle use CVS: good distal perfusion x 4, GI: soft, NTTP, ND : no SPT, no CVAT, valles catheter not present MSK: no pitting edema, no clubbing Neuro: non-focal, moving all extremities Psych: cooperative, euthymic mood - Labs CBC & Chem 7: 02/28/21 06:37 02/28/21 06:37 Assessment and Plan Assessment: Compression fracture of L1 and L5 , with mild to moderate anterior epidural hematoma at T12-L2, and L5-S1 -spine surgery management , conservative treatment for now -pain control with morphine -avoid blood thinners, and antiplatelet meds, avoid NSAIDs -neuro checks -IVF with normal saline decrease to 50 ml/hr Leukocytosis -likely reactive ,, wbc 13.7 , monitor Hyperlipidemia : on statin Hypertension: on lisinopril GERD Pepcid BID
== END 2021-03-01 11:51 | disposition home or self-care (01) | DRG 551 ==
LOC: EC 12:34 → 3SCARD 19:19
PROVIDERS: ADMIT Orthopaedic Surgery; ATTEND Orthopaedic Surgery
DX: S32.012A Unstable burst fracture of first lumbar vertebra, initial encounter for closed fracture (principal); S34.105A Unspecified injury to L5 level of lumbar spinal cord, initial encounter; S24.104A Unspecified injury at T11-T12 level of thoracic spinal cord, initial encounter; M48.56XA Collapsed vertebra, not elsewhere classified, lumbar region, initial encounter for fracture; M48.061 Spinal stenosis, lumbar region without neurogenic claudication; S24.109A Unspecified injury at unspecified level of thoracic spinal cord, initial encounter; D72.829 Elevated white blood cell count, unspecified; Z20.822 Contact with and (suspected) exposure to COVID-19; E78.5 Hyperlipidemia, unspecified; G58.9 Mononeuropathy, unspecified; G89.29 Other chronic pain; I10 Essential (primary) hypertension; K21.9 Gastro-esophageal reflux disease without esophagitis; W11.XXXA Fall on and from ladder, initial encounter; Z79.899 Other long term (current) drug therapy; W10.9XXA Fall (on) (from) unspecified stairs and steps, initial encounter
CPT/HCPCS: 36415; 70250; 72072; 72100; 72128; 72131; 72146; 72148; 72192; 80048; 80053; 85025; 85610; 85730; 87635; 99291

== ENCOUNTER 2021-03-13 08:50 | Day surgery (SDC) | payer MEDICARE, BC ==
[2021-03-12 15:34] VITALS: BMI 27.3
--- NOTE | 2021-03-13 06:37 | P.HPOR ---
History of Present Illness H&P Date: 03/12/21 Chief Complaint: L1 AOA3 fx She is 5-year-old male presenting to the hospital L1 AOA3 burst fracture with a wedge compression component to this fracture as well. The patient has been wearing his TLSO brace he states that his pain has decreased substantially but he is still fairly painful when he tries to get up out of bed or in transitions. He is walking although fairly minimally at this point. He feels that he is slightly leaning forward. He denies any neurologic symptoms no bowel bladder issues no peroneal numbness or tingling. He denies any other symptoms as of today. Review of Systems 14 points review of systems completed and as stated in HPI, all other systems reviewed are negative. Past Medical History Past Medical History: Hyperlipidemia, Hypertension, Osteoarthritis (OA) Additional Past Medical History / Comment(s): recent adm. after fall off a ladder on 02-26-21 History of Any Multi-Drug Resistant Organisms: None Reported Past Surgical History: Hernia Repair Additional Past Surgical History / Comment(s): multiple cleft palate surgeries & uvula removed, deborah cataracts, hernia x2, colonoscopies, zygomatic implants Past Anesthesia/Blood Transfusion Reactions: No Reported Reaction Smoking Status: Former smoker - Past Family History family Family Medical History: No Reported History Medications and Allergies Home Medications Medication Instructions Recorded Confirmed Type Atorvastatin [Lipitor] 20 mg PO HS 02/26/21 03/12/21 History Famotidine [Pepcid] 20 mg PO BID 02/26/21 03/12/21 History Lisinopril [Prinivil] 10 mg PO HS 02/26/21 03/12/21 History Acetaminophen [Tylenol Extra 500 mg PO Q6H PRN 03/12/21 03/12/21 History Strength] Allergies Allergy/AdvReac Type Severity Reaction Status Date / Time Sulfa (Sulfonamide Allergy Rash/Hives Verified 03/12/21 15:23 Antibiotics) Physical Examination Osteopathic Statement: *. No significant issues noted on an osteopathic structural exam other than those noted in the History and Physical/Consult. On exam the patient is alert and oriented 3 appears well-nourished well- hydrated and is in no acute distress she does not appear septic. He is wearing his TLSO brace and presents with his . He does have a somewhat forward sagittal balance when he stands. The brace is fitting him well and doing its job however. He is able to stand up straight if she concentrates. He does have positive ballottement's test as well as midline spinal tenderness over the L1 there is mild paraspinal tenderness in this area as well. He has intact motor distally with 5 over 5 strength in all major muscle groups the lower extremities bilaterally Is intact motor distally with 55 strength in all major muscle groups of the upper extremities bilaterally Light touch sensation is intact C5 to T1 as well as L2 S1. The patient does have some decreased sensation left foot on the bottom of S1 distribution. Patient has palpable dorsalis pedis was posterior tibial pulses radial pulses normal and pulses bilaterally Negative Hoffmans bilaterally negative clonus bilaterally negative Babinskis bilaterally DTRs 2/4 all upper and lower extremities He is currently ambulating with a walker for stability Cranial nerves II through XII are grossly intact. Results CT exam as well as x-rays from the hospital are reviewed that shows L1 1 O 83 burst type fracture with a wedge compression component. This is somewhat in between the burst fracture and a vertebral compression fracture. There is greater than 50% height loss. There is interval height loss of 23 mm since previous films on films taken today. These lateral films taken today demonstrate increase in the wedge compression component of the fracture. There is no spinous process splaying or evidence of instability otherwise. There is continued collapse however of the vertebral body. Overall alignment is somewhat kyphotic at this region 2-3 however the remaining alignment is stable. No Other fractures or dislocations are noted Assessment and Plan Assessment: 65-year-old male L1 burst fracture with vertebral compression component with interval compression despite bracing Status post fall off ladder Osteoporosis Plan: Spine Surgery Risk Review Joe Freeman is a 65-year-old male presenting for evaluation of admitted to low back pain. It was my pleasure to have seen and examined Joe Freeman. In our visit today we have had a chance to go over subjective complaints, physical examination findings and treatments including the natural course history without intervention and various interventional options. The patients imaging demonstrates L1 burst compression fracture. On physical exam, Joe Freeman demonstrates tenderness to palpation midline in the spine as well as kyphotic alignment despite bracing. I have explained to the patient that as their condition progresses it will cause further neurological deficits and eventual paralysis. Based on the patients imaging, physical exam, and the rapid progression and disabling nature of their symptoms, at this time I recommend surgery in the form or a: L1 kyphoplasty. I discussed the risk and benefits of this procedure at length with Joe Freeman. The patient and his agreed to considered pursuing the procedure abovementioned. Prior to surgery, she should follow up with her PCP (Cardio, ID, IM etc) for clearance. Questions were invited and answered, and the patient wishes to proceed as outlined below. Currently, I am recommendin. L1 kyphoplasty 2. Follow up with PCP for surgical clearance 3. Review of surgical risks and benefits as well as an educational packet on the proposed surgical procedure. Risks: All surgical procedures come with inherent risks, including those related to positioning, anesthesia, intraoperative findings, and postoperative complications. It is important to understand that surgery does not come with any guarantee of a successful outcome as complications and adverse events are always possible. The patient was given a handout in office today discussing the surgical procedure and risks associated with the intervention, both of which were discussed with the patient. These risks include but are not limited to the following: * Experiencing same, different or even worse symptoms in back, neck, arms, or legs compared to before surgery. * Requiring further surgery or other forms of treatment presently or at some time in the future at same or other levels of the intended spine surgery. * On an extreme but fortunately relatively rare basis severe complication such as blindness, stroke, heart attack, temporary and/or permanent nerve injury, paralysis, coma, or may occur, sometimes without known explanation. * Surgical complications may include but are not limited to risk of infection, fluid accumulation in the surgical dissection site, including a seroma or hematoma, that requires additional surgery, wound drainage, bleeding, new numbness or weakness, vision changes/loss, spinal fluid leakage, non-healing and/or infected incision, headaches, difficulty or inability to swallow, hoarseness, hemopneumothorax, pneumothorax, impotence, retrograde ejaculation, vaginal dryness; injury to nerves, spinal cord, blood vessels, ly mphatics or other vital organs (i.e., bowel injury, injury to the great vessels); heterotopic bone formation; complications related to the hardware such as screws, rods, cages including misplaced hardware, device failure, instrumentation at the wrong spine level, hardware fracture/breakage, or hardware loosening; vertebral failure of the spinal column above or below the newly placed hardware; retained surgical instrumentations or devices and the need for further surgery. * Medical risks of the planned spine surgery include but are not limited to generalized Infections to the whole body or local areas outside of the surgical site (sepsis), heart attack, bleeding, anaphylaxis, meningitis, seizure, epilepsy, hearing loss, burn chaney, laceration of the head or other areas of the body, bruising, hypersensitivity of the skin, bladder over distension; allergic reaction; shoulder injury related to positioning; fat, blood and air clots to other areas of the body like heart, lungs, brain; failure of internal organs such as lungs, kidneys, liver and excessive bleeding. If blood transfusions are necessary, note that transfusions may cause intolerance reactions such as anaphylaxis or other complex reactions. * Despite best efforts, the results of spine surgery might not heal in terms of bone, soft tissues such as skin, fascia, ligaments, and joints. Additionally, in order to achieve best possible results, spine surgery may be carried out beyond the initially planned levels and involve decompression, fusion including insertion of hardware at levels other than the original intended area of surgical interest change some portions of the procedure in order to ensure the best possible outcomes. * With spine surgery and spinal fusion, there are different off label uses of instrumentation (devices, implants and hardware) as well as biological substances (bone morphogenic proteins, demineralized bone matrix) as well as using extra bone from allograft sources (i.e. cadaver bone) or autograft (iliac crest bone, ribs, or the spine itself). The patient has been given information about these practices and their inherent risks and benefits. * [facility] is an educational center that serves as a training facility for neurosurgical and orthopedic spine residents and fellows. Residents are physicians who are completing their surgical intensive training following medical school. They assist in the operating room with direct supervision of the attending surgeons. Blanding are surgeons who have completed their training and eligible for board certification. They have opted for an elective year of more specialized training in their field. They assist in the operating room under the supervision of the attending surgeons. Physician assistants are medically trained surgical providers who function in the outpatient, inpatient, and operating room setting under the direct supervision of the attending surgeon. * [facility] has multiple operating rooms with single and overlapping rooms running daily. They currently function under the required guidelines as produced by the [facility] Finance Committee with regards to the overlapping rooms and will continue to comply with changes to this policy as they occur. The requirements include and are complied with as follows: (1) the critical portions of the overlapping rooms will not occur at the same time, (2) the attending physician will be physically present during the critical portions of the procedure and immediately available during the entire case, and (3) a back-up attending is designated should the primary attending not be immediately available. The patient has had a chance to review all the listed information, has been given print outs detailing this information, and has had all his/her questions answered to their satisfaction. It was my pleasure to have seen and examined Joe Freeman. In our visit today we have had a chance to go over my understanding of our patient's current condition, the natural course history without intervention and various interventional options. Questions were invited and answered, and the patient wishes to proceed as outlined above. I have seen and examined the patient for 25 minutes and we have spent more than 50% of the time in repeat and detailed counseling about the patient's condition, its natural course history with out and as much as can be predicted with surgery and re-review of various surgical treatment options. In conclusion, Joe Freeman and his requested we proceed with the above suggested surgery and are willing to accept risks and limitations of the suggested surgery as nature of the disease process and our best attempts at tr eatment for the condition. Thank you again for allowing us to be part of your patient's care. Please don't hesitate to contact me if you have any further questions. Signed and authenticated by: Toni Ruff [facility] [address] [facility], [address] [address]
[~2021-03-13 08:50] MED LIST: DEXAMETHASONE SOD PHOSPHATE 4 MG/ML 1 ML VIAL IV ONE; HYDROmorphone 0.5 MG/0.5 ML SYRINGE IVP PRN; LACTATED RINGERS 1,000 ML IV SCH; ONDANSETRON 4 MG/2 ML VIAL IVP ONE
--- NOTE | 2021-03-13 09:48 | P.PN ---
Progress Note - Text Progress Note Date: 03/13/21 H&P UPDATE Pt s/e in PREOP. We discussed surgery again as well as all risks and benefits and limitations. He was comfortable with these. All questions answered. Site was marked. Consent confirmed. Pt seen and deemed fit by the dept of anesthesia for procedure. Pt given a wbd of abx as well as pre op meds. He is ready for procedure.
[2021-03-13] MEDS ORDERED: MIDAZOLAM 2 MG/2 ML VIAL ONE (10:00)
[2021-03-13] MEDS ORDERED: LIDOCAINE 1% INJ 10MG/ML (20 ML MDV) ONE (10:00)
[2021-03-13] MEDS ORDERED: fentaNYL (PF) 50 MCG/ML 2 ML AMP ONE (10:00)
[2021-03-13] MEDS ORDERED: PROPOFOL 10 MG/ML 20 ML VIAL IV ONE (10:00)
[2021-03-13] MEDS ORDERED: HYDROmorphone (PF) 1 MG/ML ONE (10:00)
[2021-03-13] MEDS ORDERED: SUCCINYLCHOLINE CHLORIDE 100 MG/5 ML SYR IV ONE (10:00)
[2021-03-13] MEDS ORDERED: SODIUM CHLORIDE 0.9% 100 ML with ceFAZolin 2,000 MG IV ONE ×2 (10:02)
[2021-03-13] MEDS ORDERED: LIDOCAINE 1%-EPI 1:100,000 20 ML VIAL SQ ONE (10:26)
[2021-03-13] MEDS ORDERED: IOPAMIDOL M200 10 ML VIAL MISCELLANE ONE (10:26)
[2021-03-13 11:16] VITALS: TEMP 97
[2021-03-13] MEDS ORDERED: LACTATED RINGERS 1,000 ML IV ONE ×2 (11:43)
[2021-03-13 12:13] VITALS: RESP 20
--- NOTE | 2021-03-13 12:17 | FL ---
Fluoroscopy HISTORY: Kyphoplasty 12 seconds fluoroscopy time supplied to the referring clinician. 5 intraoperative C-arm images docum ent the procedure. See dictated report from orthopedic surgery.
[2021-03-13 13:25] VITALS: BP 150/90; PULSE 70
--- NOTE | 2021-03-13 15:43 | P.OP ---
Date of Procedure: 03/13/21 Preoperative Diagnosis: 1. L1 AOA3 burst compression fracture Postoperative Diagnosis: 1. L1 AOA3 burst compression fracture Procedure(s) Performed: L1 kyphoplasty Implants: Mcintosh cement Anesthesia: GETA Surgeon: Toni Campbell Skein Straightener #1: Basim Barahona (Was present for the entire case and necessary due to the complexity of the case) Estimated Blood Loss (ml): 5 IV fluids (ml): 400 Urine output (ml): 0 Pathology: other (L1 vertebral body) Condition: stable Disposition: PACU Indications for Procedure: 65 yo male with progression of his L1 burst compression fracture was seen in office. He has been in a TLSO, but there has been interval height loss of L1. We discussed options and he would like to proceed with L1 kyphoplasty. He was seen preoperatively. All protocols followed. We discussed risks and benefits again and he is willing to proceed. Site was marked. Consent was confirmed. Pt deeemd fit by dept of anesthesia for procedure. WBD abx given. Description of Procedure: The patient was seen and examined in the preoperative area. All preoperative protocols were followed. Informed consent was obtained risks and benefits of the procedure were discussed at length. Risks including bleeding infection damage to the surrounding tissue and risk of reoperation were discussed with the patient. Risk of anesthesia up to and including was a discussed with the patient. These are outlined in the risk review. They were willing to accept these risks and all of the risks of surgery. The patient was given a weight-ba sed dose of antibiotics in the form of 2 g Ancef. The patient was seen and evaluated by the anesthesia team who deemed them fit for surgery. The site was marked, the patient was willing to proceed with the procedure. The patient was transferred to the operative suite by the Department of anesthesia. They were then drifted off to sleep by the department anesthesia GETA. The patient tolerated this well. . Once confirmation of lines and ventilation the patient was transferred to a [prone Juaquin table very carefully]. All bony prominences including wrists, elbows, axilla, chest, hips, and thighs, and feet were padded very well. Special attention was paid to the genitalia and these were padded accordingly. SCDs were placed on bilateral lower extremities and were connected. Arms were well padded and placed [on arm boards up and out in the 90/90 position]. Once in position, again we confirmed good ventilation capabilities and that lines were running appropriately. The patient's lumbar spine was then exposed. 1010s were placed outlining the incision site. Standard alcohol was used to clean the incision site and allowed to dry. C-arm was used to biomark the patient and confirm level for incision which was marked with a skin marker. Operative briefing was performed with all teams and everyone in agreement to proceed. The patient was then prepped and draped in a normal sterile fashion. Timeout was then performed and all parties were in agreement with the procedure to be performed. We then used AP and lateral fluoroscopy to target the pedicular region on the left-hand side of L1 we entered Jamshidi into this region and passed into the vertebral body. Once in the vertebral body through the cannulated Jamshidi replaced a biopsy needle and took a specimen and sent it for pathology we then used the drill to drill out the vertebral body under AP and lateral fluoroscopy we then used a curette to curette out the L1 vertebral body in AP and lateral fluoroscopy. We then placed a balloon into the L1 vertebral body and inflated it under lateral fluoroscopy to allow for reduction. We did obtain about 3 mm of reduction in height of the vertebral body. Once this was accomplished the balloon was drained and removed. We then placed the through the cannula of the trocar for cement and cement was inserted under a pulse lateral fluoroscopy into the L1 vertebral body. We manipulated the Jamshidi to allow for a full fill of the L1 vertebral body and an AP and lateral fluoroscopy we showed good fill across midline anteriorly. Once we felt we had good fill the trocar was removed there was no cement myelogram and no cement extravasation AP and lateral fluoroscopy confirmed good fill of the L1 vertebral body. The wound was then cleaned and closed with a simple Monocryl suture in the subcuticular region followed by skin glue and dressed sterilely with a Band-Aid The patient was transferred back to her hospital bed atraumatically. Patient was then awakened and extubated by the department of anesthesia having tolerated the procedure very well with no complications. They were transferred to the postoperative care unit in stable condition.
== END 2021-03-13 12:25 | disposition home health service (06) ==
LOC: OR 08:50
PROVIDERS: ATTEND Orthopaedic Surgery
DX: S32.011A Stable burst fracture of first lumbar vertebra, initial encounter for closed fracture (principal); W11.XXXA Fall on and from ladder, initial encounter; E78.5 Hyperlipidemia, unspecified; I10 Essential (primary) hypertension; M19.90 Unspecified osteoarthritis, unspecified site; I77.6 Arteritis, unspecified; Z97.2 Presence of dental prosthetic device (complete) (partial); Z98.42 Cataract extraction status, left eye; Z98.41 Cataract extraction status, right eye; Z98.890 Other specified postprocedural states; Z87.891 Personal history of nicotine dependence; Z79.899 Other long term (current) drug therapy; Z88.2 Allergy status to sulfonamides
CPT/HCPCS: 88307; 88311; 72100; 22514; C1713; J2250; J1100; J2405; J0690; J2001; J3010; J1170; J0330; J2704; Q9966